=== PATIENT | male | born 1980 ===

== ENCOUNTER 2016-11-26 16:22 | Emergency (ER) | payer MEDICAID ==
[2016-11-26] MEDS ORDERED: IBUPROFEN 800 MG TABLET ONE (17:21)
[2016-11-26] MEDS ORDERED: HYDROCODONE/ACETAMINOPHEN 5/325MG TABLET ONE (17:21)
== END 2016-11-26 17:48 | disposition home or self-care (01) ==
LOC: ED 16:22
DX: L03.011 Cellulitis of right finger (principal); L60.0 Ingrowing nail; J45.909 Unspecified asthma, uncomplicated
CPT/HCPCS: 99283 ×2; 11730 ×2; A9270 ×2